=== PATIENT | female | born 1995 | race Caucasian/White ===

== ENCOUNTER 2018-06-05 20:00 | Emergency (ER) | payer MEDICAID ==
[~2018-06-05] VITALS: Ht 160 cm; Wt 94.3 kg
[2018-06-05 21:12] LABS: Basophils # (auto) 0 uL; Basophils % (auto) 0.4 % (0.0-2.0); Eosinophils # (auto) 0.1 uL; Hemoglobin 14.5 g/dL (12.2-16.2); Lymphocytes # (auto) 2.5 uL; Lymphocytes % (auto) 30.7 % (10.0-50.0); Mean Corpuscular Hemoglobin 28.8 pg (28.0-32.0); Mean Corpuscular Hgb Conc. 33.6 g/dL (32.0-36.0); Mean Corpuscular Volume 85.8 fL (80.0-100.0); Monocytes # (auto) 0.6 uL; Monocytes % (auto) 7.6 % (0.0-12.0); Neutrophils # (auto) 4.9 uL; Neutrophils % (auto) 60.3 % (37.0-80.0); Nucleated Red Blood Cells % 0.2 %; Platelet Count (auto) 246 10^3/uL (140-450); Red Blood Cells 5.02 10^6/uL (4.0-5.20); Red Cell Distribution Width 14.1 % (11.8-14.3); White Blood Cell 8.2 10^3/uL (4.4-10.8)
[2018-06-05 21:25] LABS: Urine Bacteria NONE SEEN /hpf (None Seen); Urine Blood 2+ /uL (Negative); Urine Specific Gravity 1.018 (1.001-1.035); Urine WBC 1 /hpf (0 - 5)
[2018-06-05 21:27] LABS: Calcium 8.5 mg/dL (8.5-10.1); Chloride 109 mmol/L (98-107); Potassium 3.9 mmol/L (3.5-5.1); Sodium 138 mmol/L (136-145)
[2018-06-05 21:36] LABS: Alanine Aminotransferase 29 U/L (13-56); Albumin 3.7 g/dL (3.4-5.0); Alkaline Phosphatase 91 U/L (45-117); Anion Gap 3 (5-15); Aspartate Aminotransferase 13 U/L (15-37); BUN/Creatinine Ratio 14.1; Bilirubin, Total 0.4 mg/dL (0.2-1.0); Blood Urea Nitrogen 11 mg/dL (7-18); Carbon Dioxide 26 mmol/L (21-32); GFR African American > 60 mL/min; GFR Non-African American > 60 mL/min; Glucose 80 mg/dL (74-106); Total Protein 7.5 g/dL (6.4-8.2)
[2018-06-06] MEDS ORDERED: cefTRIAXone 1GM/50ML D5W 50 ML IV ONE (05:00)
[2018-06-06] MEDS ORDERED: SODIUM CHLORIDE 0.9% 1,000 ML IV ONE (05:00)
[2018-06-06 06:10] VITALS: BP 102/65
== END 2018-06-06 06:19 | disposition home or self-care (01) ==
LOC: ER 20:00
DX: N39.0 Urinary tract infection, site not specified (principal); R07.9 Chest pain, unspecified
CPT/HCPCS: 36415; 74176; 80053; 81001; 84484; 85025; 96365; 99284; J0696